=== PATIENT | male | born 1950 | race Two or more races ===

== ENCOUNTER 2024-08-21 18:44 | Emergency (ER) | payer MEDICARE, SELFPAY ==
--- NOTE | 2024-08-21 | ECG_ITS ---
Test Reason : SYNCOPE Blood Pressure : */* mmHG Vent. Rate : 75 BPM Atrial Rate : * BPM P-R Int : * ms QRS Dur : 114 ms QT Int : 440 ms P-R-T Axes : * 28 193 degrees QTcB Int : 491 ms Atrial fibrillation Incomplete right bundle branch block ST & Marked T wave abnormality, consider anterolateral ischemia Prolonged QT Abnormal ECG No previous ECGs available Referred By: Generic ED Physician Electronically Signed By: Holger Stokes
--- NOTE | ~2024-08-21 | XR_ITS ---
CLINICAL HISTORY: sob 1 view chest x-ray Comparison: None Findings: Cardiomegaly. Cephalization of pulmonary vasculature and central pulmonary vascular engorgement. Increased interstitial markings in both lungs, with central/perihilar predominance. Scattered hazy alveolar opacities in both lungs. No visible pleural effusion or findings of pneumothorax. No gross evidence of acute fracture. IMPRESSION: 1. Cardiomegaly with findings of moderate interstitial and alveolar edema. This document has been electronically signed by: Josh Copeland MD on 08/21/2024 22:35:13
[2024-08-21 18:54] VITALS: BP 147/104; BP 155/106; PULSE 76; PULSE 82; RESP 20; TEMP 36.4; O2SAT 97; O2SAT 99; BMI 29.8
[2024-08-21 18:59] VITALS: BP 148/101; PULSE 76; PULSE 84; RESP 23; TEMP 36.6; O2SAT 93; O2SAT 96
[2024-08-21 20:00] LABS: MANUAL DIFF FLAG NO
[2024-08-21 20:03] LABS: Basophils Percent Auto 0.3 % (0-2); Eosinophils Absolute Auto 0.1 X10*3/uL (0.0-0.4); Eosinophils Percent Auto 0.9 % (0-4); Hematocrit 45.5 % (42.0-52.0); Hemoglobin 15.8 g/dl (14.0-18.0); Imm Gran Abs Auto 0.02 X10*3/uL (0.00-0.03); Imm Gran Pct Auto 0.3 % (0.0-0.4); Lymphocytes Absolute Auto 1.1 X10*3/uL (1.2-4.9); Lymphocytes Percent Auto 16.8 % (20-40); Mean Corpuscular HGB Conc 34.7 g/dl (31.0-36.0); Mean Corpuscular Hemoglobin 30.6 pg (27.0-33.0); Mean Platelet Volume 9.7 fL (9.4-12.4); Monocytes Absolute Auto 0.4 X10*3/uL (0.1-1.2); Monocytes Percent Auto 6.4 % (2-11); Neutrophils Absolute Auto 4.9 x10*3/uL (2.0-8.3); Neutrophils Percent Auto 75.3 % (45-73); Platelet Count 128 X10*3/uL (160-400); Red Blood Count 5.17 X10*6/uL (4.60-5.80); Red Cell Distribution Width 14.4 % (11.0-16.0); White Blood Count 6.5 X10*3/uL (4.8-10.8)
[2024-08-21 20:22] LABS: Alanine Aminotransferase 38 U/L (0-40); Albumin Level 4.4 g/dL (3.5-5.0); Alkaline Phosphatase 66 U/L (39-117); Anion Gap 14 (12-20); Aspartate Amino Transferase 32 U/L (5-37); Bilirubin Total 1.2 mg/dL (0.0-1.0); Blood Urea Nitrogen 25 mg/dL (9-16); Calcium 8.7 mg/dL (8.4-10.2); Carbon Dioxide 26 mmol/L (22-29); Chloride 108 mmol/L (96-108); Creatinine Clr Calc Pharmacy 56.8; Estimated Glomerular Filt Rate > 60; Glucose Random 112 mg/dL (60-115); Potassium 4.2 mmol/L (3.3-5.1); Sodium 144 mmol/L (135-145); Total Protein 6.6 g/dL (6.5-8.0)
[2024-08-21 20:29] LABS: Troponin-I High Sensitivity 27.8 ng/L (<3.5-35.0)
[2024-08-21 21:15] VITALS: BP 160/103; PULSE 107; RESP 38; TEMP 36.5; O2SAT 93
--- NOTE | 2024-08-21 21:34 | ED_ITS ---
HPI - General Adult General Chief complaint: Syncope Stated complaint: syncopal episode, chess compessions Time Seen by Provider: 08/21/24 20:59 Source: patient Limitations: no limitations History of Present Illness ED Provider: Luisa Harris PA-C HPI narrative: 74-year-old male with a history of AFib who is anticoagulated, hypertension and BPH presents after syncopal episode. Patient states he is traveling from [place] for his grandchild's graduation. He states he has had numerous busy days, staying up late each day. Today while attending the graduation, he had to walk up a hill. He became fatigued, SOB, dizzy, and subsequently lowered himself to his knees and had brief loss of consciousness. Bystanders initiated CPR, however he was breathing through the initial steps of CPR. Patient denies preceding chest pain, palpitations. Patient denies recent illness, cough or cold symptoms no fever. No recent nausea vomiting or diarrhea. There was no head strike, his son-in-law was present to help lower him to the ground. Related Data Allergies Allergy/AdvReac Type Severity Reaction Status Date / Time No Known Allergies Allergy Verified 08/21/24 18:58 Review of Systems 2 Review of Systems: Yes all other systems are reviewed and are negative Constitutional: Constitutional: Reports fatigue, Denies fever(s) and Denies headache(s) ENT: Reports dizziness and Denies headache(s) Cardiovascular: Cardiovascular: Denies chest pain, Reports syncope, Denies palpitations and Reports dyspnea Respiratory: Respiratory: Denies chest congestion, Denies cough and Reports dyspnea Gastrointestinal: Gastrointestinal: Denies abdominal pain, Denies diarrhea, Denies nausea and Denies vomiting Neurologic: Reports dizziness, Reports syncope and Denies headache(s) Endocrine: Endocrine: Reports fatigue and Denies palpitations [facility] [place] Past Medical History Attestation statement: The following information was validated with the patient. Physical Exam ED Vital Signs: Vital Signs - 24 hr 08/21/24 18:54 08/21/24 18:59 08/21/24 18:59 Temperature 97.6 F Pulse Rate 76 Pulse Rate [Monitor] 84 Respiratory Rate 20 Blood Pressure 147/104 H Pulse Oximetry 99 93 Oxygen Delivery Method Room Air Room Air 08/21/24 18:59 08/21/24 21:15 08/21/24 22:00 Temperature 97.9 F 97.7 F Pulse Rate 76 107 H 100 Pulse Rate [Monitor] Respiratory Rate 23 H 38 H 20 Blood Pressure 148/101 H 160/103 H 148/100 H Pulse Oximetry 96 93 96 Oxygen Delivery Method Room Air Room Air Room Air BMI result Body Mass Index 29.8 Const Other: Alert well-appearing Orientation/consciousness: patient oriented x3 Resp Effort & Inspection: normal respiratory effort Cardio Other: Normal peripheral perfusion Skin Other: Warm dry no rash Neuro General: patient oriented x3, gait normal, no focal motor deficits and CN's II- XI intact bilaterally Psych Other: Cooperative Medical Decision Making Medical Decision Making MDM Narrative: 74-year-old male with a history of AFib who is anticoagulated, hypertension and BPH presents after syncopal episode. Patient states he is traveling from [place] for his grandchild's graduation. He states he has had numerous busy days, staying up late each day. Today while attending the graduation, he had to walk up a hill. He became fatigued, SOB, dizzy, and subsequently lowered himself to his knees and had brief loss of consciousness. Bystanders initiated CPR, however he was breathing through the initial steps of CPR. Patient denies preceding chest pain, palpitations. Patient denies recent illness, cough or cold symptoms no fever. No recent nausea vomiting or diarrhea. There was no head strike, his son-in-law was present to help lower him to the ground. Problem: Age, AFib History: Per patient I have considered the following differential diagnoses: Fatigue, vasovagal syncope, anemia, dehydration, electrolyte abnormality, AFib with RVR, ACS, PE Plan: It is likely that the patient experienced vasovagal syncope given the circumstances. We will be screening basic labs to assess for clinical dehydration, anemia or presence of electrolyte abnormality. However given his cardiac history, I am considering ACS. Screening labs including cardiac enzymes EKG and chest x-ray we will be obtained. Also considering PE given syncope with the associated shortness of breath, adding a dimer. To know it is reassuring that the patient is not tachycardic, not hypoxic, or hypotensive to suggest a massive PE. He is currently asymptomatic. I have independently reviewed the following tests: Labs: No overall leukocytosis, left shift noted, not anemic, creatinine 1.14, no electrolyte abnormalities, dimer 205, troponin 27.8, delta troponin, EKG: AFib, rate of 75, ST and T-wave abnormality anterolateral lateral leads, unclear if new, incomplete right bundle, QTC 491 Lab Data 08/21/24 19:56 08/21/24 19:56 Labs: Lab Results 08/21/24 08/21/24 Range/Units 19:56 22:57 WBC 6.5 (4.8-10.8) X10*3/uL RBC 5.17 (4.60-5.80) X10*6/uL Hgb 15.8 (14.0-18.0) g/dl Hct 45.5 (42.0-52.0) % MCV 88.0 (80.0-98.0) fL MCH 30.6 (27.0-33.0) pg MCHC 34.7 (31.0-36.0) g/dl RDW 14.4 (11.0-16.0) % Plt Count 128 L (160-400) X10*3/uL MPV 9.7 (9.4-12.4) fL Immature Gran % (Auto) 0.3 (0.0-0.4) % Neut % (Auto) 75.3 H (45-73) % Lymph % (Auto) 16.8 L (20-40) % Cross % (Auto) 6.4 (2-11) % Eos % (Auto) 0.9 (0-4) % Baso % (Auto) 0.3 (0-2) % Lymph # (Auto) 1.1 L (1.2-4.9) X10*3/uL Cross # (Auto) 0.4 (0.1-1.2) X10*3/uL Eos # (Auto) 0.1 (0.0-0.4) X10*3/uL Baso # (Auto) 0.0 (0.0-0.2) X10*3/uL Abs Immat Gran (auto) 0.02 (0.00-0.03) X10*3/uL Absolute Neuts (auto) 4.9 (2.0-8.3) x10*3/uL Absolute Nucleated RBC 0.000 (0.0-0.012) X10*3/uL Nucleated RBC % (auto) 0.0 (0.0-0.2) /100WBC D-Dimer High Sensitivty 205 NG/ML Sodium 144 (135-145) mmol/L Potassium 4.2 (3.3-5.1) mmol/L Chloride 108 (96-108) mmol/L Carbon Dioxide 26 (22-29) mmol/L Anion Gap 14 (12-20) BUN 25 H (9-16) mg/dL Creatinine 1.14 (0.5-1.4) mg/dL Estim Creat Clear Calc 56.8 Estimated GFR > 60 Random Glucose 112 (60-115) mg/dL Calcium 8.7 (8.4-10.2) mg/dL Magnesium 2.0 (1.6-2.6) mg/dL Total Bilirubin 1.2 H (0.0-1.0) mg/dL AST 32 (5-37) U/L ALT 38 (0-40) U/L Alkaline Phosphatase 66 (39-117) U/L Troponin I High Sens 27.8 30.1 (<3.5-35.0) ng/L B-Natriuretic Peptide 377 H (<100) pg/mL Total Protein 6.6 (6.5-8.0) g/dL Albumin 4.4 (3.5-5.0) g/dL Influenza Type A (PCR) NEGATIVE (Negative) Influenza Type B (PCR) NEGATIVE (Negative) RSV RNA Qual (PCR) NEGATIVE (Negative) SARS-CoV-2 RNA (RT-PCR) NEGATIVE (Negative) Discharge Plan Discharge Clinical Impression: Vasovagal syncope Patient Disposition: Home, Self-Care Instructions: Syncope (ED) Additional Instructions: All of your screening labs were normal. We checked 2 cardiac enzymes, there was no change in the value, this is what we were looking for. There were no active ischemic changes on the EKG. Your chest Xray revealed some vascular congestion, however we checked an additional lab parameter, assessing cardiac function for evidence of heart failure, it was not elevated. We screened a viral panel, you were tested for influenza RSV and COVID, it was negative as well. . Be sure to follow up with your speech and language clinician when you return home. Interventions: ED Discharge Assessment Last Done: 08/22/24 00:37 Discharge Date/Time: 08/22/24 00:40 Print Language: Mongolian
[2024-08-21 22:00] VITALS: BP 148/100; PULSE 100; RESP 20; O2SAT 96
[2024-08-21 23:10] LABS: D Dimer High Sensitivity 205 NG/ML
[2024-08-21 23:23] LABS: Troponin-I High Sensitivity 30.1 ng/L (<3.5-35.0)
[2024-08-21 23:32] LABS: B Type Natriuretic Peptide 377 pg/mL (<100)
[2024-08-21 23:39] LABS: Influenza A PCR NEGATIVE (Negative); Influenza B PCR NEGATIVE (Negative); Resp Syncy Virus RNA Qual PCR NEGATIVE (Negative); SARS COV2 PCR INHOUSE NEGATIVE (Negative)
[2024-08-22] VITALS: BP 144/94; PULSE 95; RESP 18; TEMP 36.5; O2SAT 100
[2024-08-22 00:37] VITALS: BP 144/94; PULSE 95; RESP 18; TEMP 36.5; O2SAT 100
== END 2024-08-22 00:40 | disposition home or self-care (01) ==
PROVIDERS: Physician Assistant Medical; Emergency Provider Emergency Medicine Emergency Medical Services
DX: R55 Syncope and collapse (principal); I10 Essential (primary) hypertension; I48.91 Unspecified atrial fibrillation; I45.10 Unspecified right bundle-branch block; R06.02 Shortness of breath; R42 Dizziness and giddiness; Z79.899 Other long term (current) drug therapy; Z03.818 Encounter for observation for suspected exposure to other biological agents ruled out
CPT/HCPCS: 0241U; 36415; 71045; 80053; 83735; 83880; 84484; 85025; 85379; 93005; 99283; 99285

== ENCOUNTER → 2024-08-21 19:38 | Outpatient (BNV) | payer MEDICARE, SELFPAY | PROVIDERS: Emergency Provider Emergency Medicine Emergency Medical Services; Visit Provider Internal Medicine Cardiovascular Disease | DX: I48.91 Unspecified atrial fibrillation (principal); I45.10 Unspecified right bundle-branch block | CPT/HCPCS: 93010 ==

== ENCOUNTER → 2024-08-21 21:36 | Outpatient (BNV) | payer MEDICARE, SELFPAY | PROVIDERS: Emergency Provider Emergency Medicine Emergency Medical Services; Visit Provider Radiology Diagnostic Radiology | DX: I51.7 Cardiomegaly (principal) | CPT/HCPCS: 71045 ==